=== PATIENT | female | born 1950 | race African-American/Black ===

== ENCOUNTER 2017-01-21 09:18 | Emergency (ER) | payer MEDICARE ==
[~2017-01-21] VITALS: Ht 172.7 cm; Wt 81.5 kg
[2017-01-21 10:30] VITALS: BP 133/84
== END 2017-01-21 11:35 | disposition home or self-care (01) ==
LOC: EMS 09:21
DX: K04.7 Periapical abscess without sinus (principal); F17.210 Nicotine dependence, cigarettes, uncomplicated
CPT/HCPCS: 99283; 99406